=== PATIENT | female | born 2000 | race American Indian/Alaskan Native ===

== ENCOUNTER 2021-07-20 20:43 | Emergency (ER) | payer SELFPAY ==
[2021-07-20 21:32] VITALS: BP 114/68
== END 2021-07-21 02:30 | disposition left against medical advice (07) ==
LOC: ED 20:43
DX: Z04.1 Encounter for examination and observation following transport accident (principal); Z53.21 Procedure and treatment not carried out due to patient leaving prior to being seen by health care provider